=== PATIENT | male | born 1980 | race Caucasian/White ===

== ENCOUNTER 2025-08-04 02:52 | Emergency (ER) | payer OTHER ==
[~2025-08-04] VITALS: Ht 177.8 cm; Wt 106.8 kg
[2025-08-04 04:50] VITALS: BP 115/71
== END 2025-08-04 05:30 | disposition home or self-care (01) ==
LOC: ED 02:52
DX: S90.412A Abrasion, left great toe, initial encounter (principal); X58.XXXA Exposure to other specified factors, initial encounter; Z59.00 Homelessness unspecified
CPT/HCPCS: 99283